=== PATIENT | female | born 1955 | race Caucasian/White ===

== ENCOUNTER 2016-07-08 02:31 | Observation (INO) | payer MEDICARE ==
[~2016-07-08] VITALS: Ht 160 cm; Wt 81.0 kg
[~2016-07-08 02:31] MED LIST: ADVAIR HFA120 INHALA IH; BENZONATATE200 MG PO; MEDROL4 MG PO; PRAVASTATIN SOD10 MG PO; SYNTHROID50 MCG PO; VITAMIN E1000 UNIT PO
[2016-07-08] MEDS ORDERED: LEVOTHYROXINE50 MCG PO (03:03)
[2016-07-08] MEDS ORDERED: HYDROCODON-ACE1 EAC7 PO (03:03)
[2016-07-08] MEDS ORDERED: MONTELUKAST SOD10 MG PO (03:04)
[2016-07-08 03:32] LABS: BASOPHIL COUNT 0.1 K/uL (0-0.1); EOSINOPHIL (%) 3.4 % (0-5); EOSINOPHIL COUNT 0.3 K/uL (0-0.3); HEMATOCRIT 37.8 % (36.0-46.0); IMMATURE GRANULOCYTE (%) 0.2 % (0.0-0.7); IMMATURE GRANULOCYTE COUNT 0.2 K/uL; LYMPHOCYTE COUNT 1.7 K/uL (1.0-2.8); MCH 31.1 PG (29.0-34.0); MCHC 34.1 G/DL (30.0-36.0); MCV 91.1 FL (83-99); MEAN PLAT.VOLUME 9.9 uM^3 (9.5-12.4); MONOCYTE (%) 7.9 % (3-12); MONOCYTE COUNT 0.7 K/uL (0-0.8); NEUTROPHIL (%) 69.5 % (45-76); NEUTROPHIL COUNT 6.4 K/uL (1.8-6.4); PLATELET COUNT 257 K/uL (156-360); RBC DIS.WIDTH-CV 12.7 % (11.8-14.6); RBC DIS.WIDTH-SD 41.7 % (39-53); RED BLOOD COUNT 4.15 M/uL (3.80-5.20); WHITE BLOOD COUNT 9.2 K/uL (4.1-10.2)
[2016-07-08 03:43] LABS: D-DIMER ELISA 0.85 mg/L FEU (< 0.57)
[2016-07-08 03:44] LABS: CHLORIDE 108 mEq/L (99-109); POTASSIUM 3.9 mEq/L (3.7-5.4); SODIUM 138 mEq/L (136-147)
[2016-07-08 03:47] LABS: GLUCOSE 118 mg/dL (70-99)
[2016-07-08 03:48] LABS: ANION GAP 9 MEQ/L (2-14)
[2016-07-08 03:49] LABS: TOTAL BILIRUBIN 0.2 mg/dL (0.0-1.0)
[2016-07-08 03:50] LABS: ALKALINE PHOSPHATASE 83 IU/L (3-129); GFR ESTIMATE (CALCULATED) > 59 mL/min/
[2016-07-08 03:51] LABS: UREA NITROGEN (BUN) 18 mg/dL (9-23)
[2016-07-08 03:52] LABS: TROP-I INTERPRETATION NEGATIVE; TROPONIN-I < 0.01 ng/mL (0.0-0.30)
[2016-07-08 03:54] LABS: LIPASE 31 U/L (1.0-51.0)
[2016-07-08 04:55] LABS: ADD MIUA? NO; BILIRUBIN NEGATIVE; BLOOD NEGATIVE; COLOR STRAW ((YELLOW)); GLUCOSE (STRIP) NEGATIVE; KETONES NEGATIVE; LEUKOCYTES NEGATIVE; NITRITE NEGATIVE; PROTEIN (STRIP) NEGATIVE; SPECIFIC GRAVITY 1.021 (1.000-1.030); UCUL ADDED? NO; UROBILINOGEN 0.2 MG/DL (0.2-1.0)
[2016-07-08 05:07] LABS: PROTHROMBIN TIME 10.6 (9.2-11.2); PTT 27.9 (25-32)
[2016-07-08 07:40] VITALS: BP 115/71
[2016-07-08 11:06] VITALS: BP 99/68
[2016-07-08 15:59] LABS: TROP-I INTERPRETATION NEGATIVE; TROPONIN-I < 0.01 ng/mL (0.0-0.30)
[2016-07-08 16:22] VITALS: BP 101/64
[2016-07-08 19:00] VITALS: BP 111/62
[2016-07-09 00:23] VITALS: BP 120/72
[2016-07-09 04:28] VITALS: BP 106/67
[2016-07-09 08:30] VITALS: BP 119/71
[2016-07-09 11:43] VITALS: BP 113/73
[2016-07-09] MEDS ORDERED: DICYCLOMINE HCL10 MG PO (14:42)
[2016-07-09] MEDS ORDERED: XARELTO15 MG PO ×2 (14:47→14:53)
[2016-07-09] MEDS ORDERED: PROTONIX40 MG PO (14:49)
== END 2016-07-09 15:56 | disposition home or self-care (01) ==
LOC: EME 02:31 → EDOF 05:30 → 5WEST 05:30
PROVIDERS: Emergency Medicine; Student in an Organized Health Care Education/Training Program
DX: I26.99 Other pulmonary embolism without acute cor pulmonale (principal); K58.9 Irritable bowel syndrome, unspecified; R10.13 Epigastric pain; I34.1 Nonrheumatic mitral (valve) prolapse; J45.909 Unspecified asthma, uncomplicated; E78.5 Hyperlipidemia, unspecified; E66.9 Obesity, unspecified; Z68.31 Body mass index [BMI] 31.0-31.9, adult
CPT/HCPCS: 71020; 71275; 74177; 76705; 80053; 81003; 82150; 83605; 83690; 84484; 85025; 85379; 85610; 85730; 93005; 93971; 99281; 99285; G0378; J1170; J2270; J2405; J7030; S0028